=== PATIENT | male | born 1975 | race Caucasian/White ===

== ENCOUNTER 2024-06-23 21:54 | Emergency (ER) | payer OTHER, SELFPAY ==
[~2024-06-23] VITALS: Ht 177.8 cm; Wt 110.9 kg
[2024-06-23] MEDS ORDERED: ETOMIDATE INJ 20MG/10ML VIAL ONE (21:55)
[2024-06-23] MEDS ORDERED: ATROPINE SULF 1MG/10ML SYRINGE ONE (21:55)
[2024-06-23] MEDS ORDERED: DOPamine 400 MG/500 ML BAG IN D5W (800MCG/ML) ONE (21:55)
[2024-06-23] MEDS ORDERED: SODIUM BICARBONATE 8.4% INJ 50ML SYRINGE ONE (21:55)
[2024-06-23] MEDS ORDERED: AMIODARONE 150MG/3ML VIAL ONE (21:55)
[2024-06-23] MEDS ORDERED: EPINEPHrine 1MG/10ML SYRINGE 1.5IN ONE (21:55)
[2024-06-23] MEDS ORDERED: ROCURONIUM BROMIDE 50MG/5ML VIAL ONE (21:55)
[2024-06-23] MEDS ORDERED: fentaNYL 100 MCG/2 ML INJECTION IV PRN (22:05)
[2024-06-23] MEDS: CLOPIDOGREL 300 MG TAB (PLAVIX) PO ONE (22:05)
[2024-06-23] MEDS: TENECTEPLASE 50 MG/10 ML VIAL IV STA (22:14)
[2024-06-23] MEDS: NOREPINEPHRINE 4MG IN D5 250ML 4 MG in IV 1 EA IV SCH (22:17)
[2024-06-23 22:23] LABS: BASO # 0.1 10^3/uL (0.0-0.2); BASO % 1.1 % (0.0-1.0); EOS # 0.1 10^3/uL (0.0-0.5); EOS % 1.3 % (0.0-3.0); HEMATOCRIT 45.2 % (42.0-52.0); HEMOGLOBIN 15.4 g/dl (13.5-17.5); LYMPH # 4.9 10^3/uL (1.5-5.0); LYMPH % 43.9 % (24.0-44.0); MEAN CORPUSCULAR HEMOGLOBIN 32.2 pg (27.0-33.0); MEAN CORPUSCULAR HGB CONC 34.1 g/dl (32.0-36.5); MEAN CORPUSCULAR VOLUME 94.4 fl (80.0-96.0); MONO # 0.7 10^3/uL (0.0-0.8); MONO % 5.9 % (2.0-8.0); NEUTROPHILS # 5.3 10^3/uL (1.5-8.5); NEUTROPHILS % 47.5 % (36.0-66.0); PLATELET COUNT, AUTOMATED 220 10^3/uL (150-450); RED BLOOD COUNT 4.79 10^6/uL (4.30-6.10); WHITE BLOOD COUNT 11.2 10^3/uL (4.0-10.0)
[2024-06-23] MEDS: HEPARIN SOD (PORCINE) 5000UNITS/ML 1ML VIAL/SYRINGE IV ONE (22:23)
[2024-06-23] MEDS: HEPARIN DRIP 25,000 UNITS in IV 1 EA IV SCH (22:24)
[2024-06-23] MEDS: ONDANSETRON 4MG 2ML VIAL IV ONE (22:25)
[2024-06-23] MEDS: NS (Normal Saline) 0.9% 1,000 ML IV ONE (22:25)
[2024-06-23 22:35] LABS: INR 0.93; PROTHROMBIN TIME 12.8 SECONDS (12.5-14.5)
[2024-06-23 22:37] VITALS: O2SAT 82
[2024-06-23 22:47] VITALS: TEMP 98.1
[2024-06-23 22:51] VITALS: BP 88/54
[2024-06-23 22:51] LABS: CK-MB VALUE MASS < 1.0 NG/ML (<3.6)
[2024-06-23 22:52] LABS: BLOOD UREA NITROGEN 11 MG/DL (9-23); CALCIUM LEVEL 8.4 MG/DL (8.5-10.1); CARBON DIOXIDE LEVEL 23 MMOL/L (20-31); CHLORIDE LEVEL 104 MMOL/L (98-107); CPK CREATINE PHOSPHOKINASE 104 U/L (46-171); CREATININE FOR GFR 1.11 MG/DL (0.70-1.30); GLOMERULAR FILTRATION RATE > 60.0 (>56); GLUCOSE, FASTING 218 MG/DL (60-100); MB/CK RELATIVE INDEX 0.96 (< OR =4); POTASSIUM SERUM 3.9 MMOL/L (3.5-5.1); SODIUM LEVEL 139 MMOL/L (136-145)
[2024-06-23] MEDS ORDERED: FUROSEMIDE 100MG/10ML VIAL As Ordered ONE (23:06)
[2024-06-23] MEDS: FUROSEMIDE 100MG/10ML VIAL IV ONE (23:08)
== END 2024-06-24 02:00 | disposition expired ==
LOC: EDBD 21:54 → M ED 21:54
DX: I21.3 ST elevation (STEMI) myocardial infarction of unspecified site (principal); I46.9 Cardiac arrest, cause unspecified; F17.200 Nicotine dependence, unspecified, uncomplicated; Z88.0 Allergy status to penicillin
CPT/HCPCS: 31500; 71045; 80047; 80048; 82550; 82553; 84484; 85025; 85610; 85730; 92950; 93005; 93041; 94760; 96365; 96375; 99291; 99292; J0171; J0282; J0461; J1265; J1940; J2405; J3010; J3101

== ENCOUNTER → 2024-06-26 | Outpatient (REF) | LOC: M LAB 11:27 | PROVIDERS: ATTEND Pathology Forensic Pathology ==